=== PATIENT | male | born 1985 | race African-American/Black ===

== ENCOUNTER 2018-04-25 11:02 | Emergency (ER) | payer OTHER, SELFPAY ==
[~2018-04-25] VITALS: Ht 180.3 cm; Wt 156.8 kg
[2018-04-25] MEDS ORDERED: KEFL500C17 PO (12:34)
[2018-04-25 12:42] VITALS: BP 141/94
== END 2018-04-25 12:44 | disposition home or self-care (01) ==
LOC: M ED 11:02
DX: H04.012 Acute dacryoadenitis, left lacrimal gland (principal)

== ENCOUNTER 2018-04-27 14:55 | Emergency (ER) | payer SELFPAY, MEDICAID, OTHER ==
[2018-04-27] MEDS: cefTRIAXone SOD 2 GM in D5W MINI-BAG PLUS 50 ML IV (15:37)
[2018-04-27 15:39] LABS: BASO # 0.1 10^3/uL (0.0-0.2); BASO % 0.4 % (0.0-1.0); EOS # 0.2 10^3/uL (0.0-0.50); EOS % 2.1 % (0.0-3.0); HEMATOCRIT 48.7 % (42.0-52.0); HEMOGLOBIN 16.3 g/dl (13.5-17.5); IMMATURE GRANULOCYTE % 0.4 % (0-3.0); LYMPH # 3.1 10^3/uL (1.5-4.5); LYMPH % 27.5 % (24.0-44.0); MEAN CORPUSCULAR HEMOGLOBIN 29.2 pg (27.0-33.0); MEAN CORPUSCULAR HGB CONC 33.5 g/dl (32.0-36.5); MEAN CORPUSCULAR VOLUME 87.3 fl (80.0-96.0); MONO # 0.9 10^3/uL (0.0-0.8); MONO % 7.6 % (0.0-5.0); NEUTROPHILS # 6.9 10^3/uL (1.8-7.7); PLATELET COUNT, AUTOMATED 232 10^3/uL (150-450); RED BLOOD COUNT 5.58 10^6/uL (4.30-6.10); WHITE BLOOD COUNT 11.2 10^3/uL (4.0-10.0)
[2018-04-27 15:55] LABS: ANION GAP 8 MEQ/L (8-16); BLOOD UREA NITROGEN 13 MG/DL (7-18); C REACTIVE PROTEIN QUANTITATIV 1.01 MG/DL (0.00-0.30); CARBON DIOXIDE LEVEL 25 MEQ/L (21-32); CHLORIDE LEVEL 105 MEQ/L (98-107); CREATININE FOR GFR 0.67 MG/DL (0.70-1.30); GLOMERULAR FILTRATION RATE > 60.0 (>60); GLUCOSE, FASTING 92 MG/DL (70-100); POTASSIUM SERUM 4.1 MEQ/L (3.5-5.1); SODIUM LEVEL 138 MEQ/L (136-145)
== END 2018-04-27 16:48 | disposition home or self-care (01) ==
LOC: M ED 14:55
DX: H01.004 Unspecified blepharitis left upper eyelid (principal)
CPT/HCPCS: J0696

== ENCOUNTER → 2018-04-29 | Outpatient (REF) | payer MEDICAID | LOC: M LAB REF 15:52 | DX: H00.034 Abscess of left upper eyelid (principal) | CPT/HCPCS: 87070 ==

== ENCOUNTER → 2020-09-30 | Outpatient (CLI) | payer MEDICAID ==
[~2020-09-30] MED LIST: KEFL500C17 PO
--- NOTE | 2020-09-30 09:54 | REP ---
INDICATION: F/U SHOULDER PAIN. COMPARISON: None. TECHNIQUE: Four views of the right shoulder are presented. FINDINGS: Four views of the right shoulder demonstrate normal alignment of the glenohumeral and acromioclavicular joints. There is fairly large subcortical cyst in the articular region of the humeral head. This measures approximately 1.2 cm in greatest diameter. There are 1 or 2 similar lucencies in the glenoid. This implies arthropathy. Question erosive change. The AC joint is unremarkable a normal ALFORD. Periarticular soft tissues are unremarkable. The visualized structures in the right hemithorax appear intact. IMPRESSION: Subcortical cyst formation and sclerosis on both sides of the glenohumeral articulation, question erosive arthropathy. Consider further imaging with MRI scanning. <Electronically signed by Lazaro Lee > 09/30/20 1237
== END ==
LOC: M SOG 08:46
PROVIDERS: ATTEND Orthopaedic Surgery Sports Medicine
DX: M75.41 Impingement syndrome of right shoulder (principal)

== ENCOUNTER 2020-11-07 07:00 | Outpatient (RCR) | payer MEDICAID, OTHER | END 2020-11-08 | LOC: M PT 07:00 | PROVIDERS: ATTEND Orthopaedic Surgery Sports Medicine | DX: M75.41 Impingement syndrome of right shoulder (principal) ==